=== PATIENT | male | born 1955 | race Caucasian/White ===

== ENCOUNTER 2021-06-15 04:52 | Day surgery (SDC) | payer OTHER ==
[2021-06-09 15:19] VITALS: BMI 36.4
[2021-06-15 11:09] VITALS: TEMP 97.5
[2021-06-15 13:52] VITALS: BP 99/58; PULSE 59
== END 2021-06-15 11:55 | disposition home or self-care (01) ==
LOC: JASU-ENDO 04:52
PROVIDERS: ATTEND Internal Medicine Gastroenterology
PROC: 0DJD8ZZ Inspection of Lower Intestinal Tract, Via Natural or Artificial Opening Endoscopic (ICD-10-PCS; principal; 2021-06-15 10:15)
DX: Z12.11 Encounter for screening for malignant neoplasm of colon (principal); K57.30 Diverticulosis of large intestine without perforation or abscess without bleeding; K64.8 Other hemorrhoids